=== PATIENT | male | born 1970 | race Caucasian/White ===

== ENCOUNTER 2017-04-09 17:06 | Emergency (ER) | payer OTHER ==
[2017-04-09 17:37] VITALS: BMI 23.1
[2017-04-09 17:45] LABS: URINE APPEARANCE Clear; URINE BILIRUBIN Negative (NEGATIVE); URINE BLOOD Trace-lysed (NEGATIVE); URINE GLUCOSE (UA) 3+ (NEGATIVE); URINE KETONE Negative (NEGATIVE); URINE LEUK ESTERASE Negative (NEGATIVE); URINE NITRITE Negative (NEGATIVE); URINE PROTEIN Negative (NEGATIVE); URINE UROBILINOGEN 0.2 E.U/dl (0.2-1.0)
[2017-04-09 17:46] LABS: URINE COLOR YELLOW
[2017-04-09] MEDS ORDERED: FOLIC ACID INJECTION - 1 MG, THIAMINE HCL 100 MG, MULTIVIT INJECTION ADULT 10 ML in SOD... IVPB ONE (18:16)
--- NOTE | 2017-04-09 18:21 | PDOC ---
History of Present Illness - General Chief Complaint: Psychiatric Stated Complaint: HAVING SUICIDAL IDEAS Time Seen by Provider: 04/09/17 17:11 - History of Present Illness Initial Comments: 04/09/17 18:17 46-year-old male with a past medical history of traumatic brain injury/ICH 2 and half years ago, alcohol abuse, anxiety disorder, bipolar disorder, PTSD, OCD , diabetes with diabetic neuropathy, and severe psoriasis Patient is on multiple psych meds, but stopped them about a week ago He's been drinking heavily for the past 4-5 days He states that he's been drinking a lot because he is having his chronic headaches from his TBI He also became very upset about this and became very depressed off his medications He states that for the past 2 days he's been feeling suicidal, and wants to end it all He states that his plan is to walk in front of a bus, or jump onto train tracks when the train is coming He states that the only medication that he is still taking is his diabetes medication He denies any illicit drug use He denies any other complaints at this time Past History - Past Medical History Allergies/Adverse Reactions: Allergies Allergy/AdvReac Type Severity Reaction Status Date / Time No Known Allergies Allergy Verified 04/09/17 17:10 Home Medications: Ambulatory Orders Sitagliptin Phos/Metformin HCl [Janumet Xr 50-1,000 mg Tablet] 2 each PO DAILY 04/09/17 Divalproex [Depakote -] 1,000 mg PO HS 04/10/17 Venlafaxine HCl [Effexor -] 2 tab PO DAILY 04/10/17 Diabetes: Yes Psychiatric Problems: Yes (SOCIAL ANXIETY, POST TRAUMATIC STRESS OCD ALCOHOL DEPENDENCY) Other medical history: BRAIN INJURY 2 1/2 YEARS AGO CRANIAL BLEED, NEUROPATHY TO LOWER EXTREMITI - Surgical History Neurologic Surgery: Yes (FOR INTRA CRANIAL BLEED) - Psycho/Social/Smoking Cessation Hx Anxiety: Yes Suicidal Ideation: Yes (PLAN TO WALK IN FRONT OF BUS) Smoking History: Current every day smoker Have you smoked in the past 12 months: Yes Number of Cigarettes Smoked Daily: 20 Information on smoking cessation initiated: Yes 'Breaking Loose' booklet given: 04/09/17 Hx Alcohol Use: Yes Drug/Substance Use Hx: No Substance Use Type: Alcohol Review of Systems - Review of Systems Able to Perform ROS?: Yes Comments:: 04/09/17 18:19 12 point review of systems is as per history of present illness and otherwise negative *Physical Exam - Vital Signs Last Vital Signs Temp Pulse Resp BP Pulse Ox 99.2 F 108 H 18 123/87 96 04/09/17 17:09 04/09/17 17:09 04/09/17 17:09 04/09/17 17:09 04/09/17 17:09 - Physical Exam Comments: 04/09/17 18:19 Physical exam Last Vital Signs Temp Pulse Resp BP Pulse Ox 99.2 F 108 H 18 123/87 96 04/09/17 17:09 04/09/17 17:09 04/09/17 17:09 04/09/17 17:09 04/09/17 17:09 GENERAL: The patient is awake, alert, and with AOAOB HEAD: Normal with no signs of trauma. EYES: sclera anicteric, conjunctiva are normal. ENT: Moist mucous membranes. NECK: Normal range of motion, supple LUNGS: Breath sounds equal, clear to auscultation bilaterally. No wheezes, and no crackles. HEART: Tachycardic Regular rate and rhythm, normal S1 and S2 without murmur, rub or gallop. ABDOMEN: Soft, nontender, normoactive bowel sounds. No guarding, no rebound. No masses appreciated. EXTREMITIES: Normal range of motion, no edema. No clubbing or cyanosis. No cords, erythema, or tenderness. NEUROLOGICAL: Cranial nerves II through XII grossly intact. Normal speech, normal gait. PSYCH: Normal mood, normal affect. SKIN: Warm, Dry, severe diffuse psoriasis ED Treatment Course - LABORATORY CBC & Chemistry Diagram: 04/09/17 18:20 04/10/17 07:43 - ADDITIONAL ORDERS Additional order review: Laboratory Results 04/09/17 17:10 Urine Color Yellow Urine Appearance Clear Urine pH 5.0 Ur Specific [place] <= 1.005 Urine Protein Negative Urine Glucose (UA) 3+ H Urine Ketones Negative Urine Blood Trace-lysed Urine Nitrite Negative Urine Bilirubin Negative Urine Urobilinogen 0.2 e.u/dl Ur Leukocyte Esterase Negative Medical Decision Making - Medical Decision Making 04/09/17 18:20 46-year-old male with history as noted above, with active suicidal ideation, and recent heavy drinking, with a strong odor of alcohol on his breath Will start with a banana bag, labwork, drug screen, alcohol level 04/09/17 18:21 Patient absolutely refuses IV I did have an extensive discussion with the patient and he still absolutely refuses IV 04/09/17 19:16 SIGN OUT Case discussed in detail with oncoming Emergency Physician including history, physical exam and ancillary studies. Oncoming Emergency Physician has assumed care for the patient and will complete the evaluation and treatment. Case and all results discussed with Dr. hodge-all labwork and studies pending at time of sign out Patient sitting comfortably with a one-on-one, still refusing IV EKG Normal sinus rhythm 96, normal axis Normal AV and IV conduction time Prolonged QT with a QTC of [address]-T waves *DC/Admit/Observation/Transfer Diagnosis at time of Disposition: Suicidal ideations - Discharge Dispostion Disposition: TRANSFER ACUTE CARE/OTHER HOSP Condition at time of disposition: Stable
[2017-04-09 18:42] LABS: INR 0.86 (0.82-1.09); PROTHROMBIN TIME (PATIENT) 9.7 SEC (10.2-13.0)
[2017-04-09 18:50] LABS: ALBUMIN 4.4 g/dl (3.5-5.0); ALK PHOS 136 U/L (32-92); ANION GAP 16 (8-16); BILIRUBIN,TOTAL 0.2 mg/dl (0.2-1.0); CALCIUM 9.5 mg/dl (8.4-10.2); CO2 21 mmol/L (22-28); CREATININE 1.3 mg/dl (0.6-1.3); MAGNESIUM 2.3 mg/dL (1.8-2.4); SGOT/AST 24 U/L (10-42); SGPT/ALT 27 U/L (10-40)
[2017-04-09 18:54] LABS: MCH 32.9 pg (25.7-33.7); MCHC 34.3 g/dl (32.0-35.9); MEAN PLT VOLUME 8.9 fl (7.5-11.1); PLATELET COUNT 349 K/MM3 (134-434); RDW 12.6 % (11.9-15.9); WHITE BLOOD COUNT 8.2 K/mm3 (4.0-10.8)
[2017-04-09 19:08] LABS: URINE MARIJUANA THC NEGATIVE ng/ml (CUTOFF=50)
[2017-04-09 19:08] LABS: TROPONIN I (DFP) < 0.03 ng/ml (0.03-0.50)
[2017-04-09 19:11] LABS: GLUCOSE,RANDOM 465 mg/dl (74-106)
[2017-04-09 19:13] LABS: CPK(DFH) 88 IU/L (38-174)
--- NOTE | 2017-04-09 21:28 | PDOC ---
[id number] 123/87 96 04/09/17 17:09 04/09/17 17:09 04/09/17 17:09 04/09/17 17:09 04/09/17 17:09 ED Treatment Course - LABORATORY CBC & Chemistry Diagram: 04/09/17 18:20 04/10/17 07:43 - ADDITIONAL ORDERS Additional order review: Laboratory Results 04/09/17 04/09/17 04/09/17 18:20 18:20 18:20 INR Sodium 128 L Potassium 5.2 H Chloride 91 L Carbon Dioxide 21 L Anion Gap 16 BUN 8 Creatinine 1.3 Creat Clearance w eGFR 58.92 Random Glucose 465 H* Calcium 9.5 Magnesium 2.3 Total Bilirubin 0.2 AST 24 ALT 27 Alkaline Phosphatase 136 H Creatine Kinase 88 Troponin I < 0.03 L Total Protein 8.0 Albumin 4.4 Urine Color Urine Appearance Urine pH Ur Specific [place] Urine Protein Urine Glucose (UA) Urine Ketones Urine Blood Urine Nitrite Urine Bilirubin Urine Urobilinogen Ur Leukocyte Esterase Opiates Screen Methadone Screen Barbiturate Screen Phencyclidine Screen Ur Amphetamines Screen MDMA (Ecstasy) Screen Benzodiazepines Screen Cocaine Screen U Marijuana (THC) Screen Alcohol, Quantitative 252.8 H* 04/09/17 04/09/17 04/09/17 18:20 17:10 17:10 INR 0.86 L Sodium Potassium Chloride Carbon Dioxide Anion Gap BUN Creatinine Creat Clearance w eGFR Random Glucose Calcium Magnesium Total Bilirubin AST ALT Alkaline Phosphatase Creatine Kinase Troponin I Total Protein Albumin Urine Color Yellow Urine Appearance Clear Urine pH 5.0 Ur Specific [place] <= 1.005 Urine Protein Negative Urine Glucose (UA) 3+ H Urine Ketones Negative Urine Blood Trace-lysed Urine Nitrite Negative Urine Bilirubin Negative Urine Urobilinogen 0.2 e.u/dl Ur Leukocyte Esterase Negative Opiates Screen Negative Methadone Screen Negative Barbiturate Screen Negative Phencyclidine Screen Negative Ur Amphetamines Screen Negative MDMA (Ecstasy) Screen Negative Benzodiazepines Screen Negative Cocaine Screen Negative U Marijuana (THC) Screen Negative Alcohol, Quantitative 04/09/17 18:20 RBC 4.61 MCV 96.0 MCHC 34.3 RDW 12.6 MPV 8.9 Progress Note - Progress Note Progress Note: Care of this patient received from Dr. Nathan. Patient has refused IV fluids but will drink water. Importance of hydration in light of his hyperglycemia and alcohol intoxication emphasized to the patient. Medical Decision Making - Medical Decision Making 04/10/17 00:22 Patient given 10 units of regular insulin subcutaneously for blood sugar of 465. He continues to drink copious amounts of water Repeat laboratory evaluation shows improvement of hyperglycemia with new value of 330. Also, his alcohol level has decreased to 37.6. Patient continues to be alert, oriented 3. He has having increased tremulousness and has received Librium 50 mg by mouth. Patient continues to express hopelessness and suicidal ideation. He states that he was told that he has degenerative changes in his brain secondary to trauma sustained 2-1/2 years ago. When he was told this 2 weeks ago, he began to drink heavily and became increasingly depressed. He understands that he needs psychiatric care and feels that" he needs to talk to someone " Since patient wants to be close to his children who live in [place], his first choice for inpatient psychiatric admission would be [facility]. His demographic information/synopsis/laboratory work faxed to [facility]. Informed by [facility] that psychiatrist will not be able to evaluate material until the morning. They currently do not have any open beds Patient has stated that [facility] would also be acceptable for inpatient psychiatric care. 04/10/17 01:58 Repeat fingerstick glucose is 226. Patient is resting comfortably without new complaints. Patient is medically cleared for inpatient psychiatric admission. 04/10/17 03:39 Medical synopsis/demographic information/lab/EKG/medical clearance faxed to [facility] (through transfer center). Information was communicated to psychiatrist on-call and reviewed as per transfer center. Have been advised that medical reevaluation and full packet of information, including medical clearance as above will need to be refaxed to the transfer center at approximately 9 AM 04/10/17 07:04 Patient updated regarding his transfer applications and [facility] and [facility]. Patient is still eager for inpatient evaluation at either facility. Patient states that he is feeling generally better but is very thirsty. Has given additional water to drink now. Repeat chemistry profile/ethanol level pending 04/10/17 07:18 Case signed out to Dr Huddleston at end of shift *DC/Admit/Observation/Transfer Diagnosis at time of Disposition: Suicidal ideations - Discharge Dispostion Disposition: TRANSFER ACUTE CARE/OTHER HOSP Condition at time of disposition: Stable
[2017-04-09] MEDS ORDERED: INSULIN REGULAR HUMAN 100 UNITS/ML *VIAL SQ ONE (21:35)
[2017-04-09] MEDS ORDERED: INSULIN REGULAR HUMAN 100 UNITS/ML *VIAL ONE (21:46)
[2017-04-09] MEDS ORDERED: chlordiazePOXIDE HCL 25 MG CAPSULE PO ONE (23:04)
[2017-04-09] MEDS ORDERED: chlordiazePOXIDE HCL 25 MG CAPSULE ONE (23:07)
[2017-04-09 23:23] LABS: ALBUMIN 4.4 g/dl (3.5-5.0); ALK PHOS 134 U/L (32-92); ANION GAP 15 (8-16); BILIRUBIN,TOTAL 0.7 mg/dl (0.2-1.0); CALCIUM 9.4 mg/dl (8.4-10.2); CO2 22 mmol/L (22-28); COCKROFT - GAULT 97.47; CREATININE 1.1 mg/dl (0.6-1.3); SGOT/AST 22 U/L (10-42); SGPT/ALT 28 U/L (10-40); TOT PROT 7.9 g/dl (6.4-8.3)
[2017-04-09 23:27] LABS: GLUCOSE,RANDOM 330 mg/dl (74-106)
--- NOTE | 2017-04-10 07:35 | PDOC ---
*Physical Exam - Vital Signs Last Vital Signs Temp Pulse Resp BP Pulse Ox 99.2 F 90 14 107/61 93 L 04/09/17 17:09 04/10/17 01:38 04/10/17 01:38 04/10/17 01:38 04/10/17 01:38 ED Treatment Course - LABORATORY CBC & Chemistry Diagram: 04/09/17 18:20 04/10/17 07:43 - ADDITIONAL ORDERS Additional order review: Laboratory Results 04/10/17 04/09/17 04/09/17 02:22 23:00 23:00 Sodium 131 L Potassium 4.5 Chloride 94 L Carbon Dioxide 22 Anion Gap 15 BUN 8 Creatinine 1.1 Creat Clearance w eGFR > 60 POC Glucometer 226 Random Glucose 330 H* D Calcium 9.4 Total Bilirubin 0.7 D AST 22 ALT 28 Alkaline Phosphatase 134 H Total Protein 7.9 Albumin 4.4 Alcohol, Quantitative 37.6 H* 04/10/17 04/09/17 02:22 18:20 RBC 4.61 MCV 96.0 MCHC 34.3 RDW 12.6 MPV 8.9 POC Glucometer 226 - Medications Given in the ED: ED Medications Discontinued Medications Generic Name Dose Route Start Last Admin Trade Name Freq PRN Reason Stop Dose Admin Chlordiazepoxide HCl 50 mg 04/09/17 23:04 04/09/17 23:05 Librium - PO 04/09/17 23:05 50 mg ONCE ONE Administration Folic Acid 1 mg/ Thiamine HCl 1,000 mls @ 125 mls/hr 04/09/17 18:16 04/09/17 18 :21 100 mg/ Multivitamins/Minerals IVPB 04/10/17 02:15 Not Given 10 ml/ Sodium Chloride ONCE ONE Insulin Human Regular 10 units 04/09/17 21:35 04/09/17 21:43 Novolin R Vial *For Ivpush Or Iv Drip Only* SQ 04/09/17 21:36 10 units ONCE ONE Administration Medical Decision Making - Medical Decision Making 04/10/17 07:34 I received this patient on sign out He is awaiting transfer to [facility] or [facility] Will call Dr gregory as I am being told he must see this patient 04/10/17 08:06 Received call from smita at [facility] We are awaiting attending to finish rounds 04/10/17 08:[address] Gregory He will see this patient at approximately 1pm 04/10/17 09:20 Call placed to [facility] Still awaiting for attending response 04/10/17 11:[address] Peoples will transfer to [facility] Will transfer via BLS Pt is not tachycardiac or tremulous *DC/Admit/Observation/Transfer Diagnosis at time of Disposition: Suicidal ideations - Discharge Dispostion Disposition: TRANSFER ACUTE CARE/OTHER HOSP Condition at time of disposition: Stable Admit: No - Transfer to Acute Care Facility Receiving Facility: [facility]. Accepting Physician:: Dr. Peoples
[2017-04-10 08:10] LABS: ALBUMIN 3.8 g/dl (3.5-5.0); ALK PHOS 118 U/L (32-92); ANION GAP 10 (8-16); BILIRUBIN,TOTAL 0.9 mg/dl (0.2-1.0); CALCIUM 8.9 mg/dl (8.4-10.2); CO2 26 mmol/L (22-28); GLUCOSE,RANDOM 267 mg/dl (74-106); SGOT/AST 21 U/L (10-42); SGPT/ALT 23 U/L (10-40); TOT PROT 6.8 g/dl (6.4-8.3)
[2017-04-10] MEDS ORDERED: metFORMIN HCL 500 MG TABLET (FP) PO ONE (11:09)
[2017-04-10] MEDS ORDERED: metFORMIN HCL 500 MG TABLET (FP) ONE (11:23)
[2017-04-10] MEDS ORDERED: sitaGLIPtin PHOSPHATE 50 MG TABLET PO ONE (11:26)
[2017-04-10 11:43] VITALS: BP 120/72; PULSE 86; TEMP 98
--- NOTE | 2017-04-10 14:23 | EKG ---
Test Reason : Blood Pressure : / mmHG Vent. Rate : 096 BPM Atrial Rate : 096 BPM P-R Int : 126 ms QRS Dur : 098 ms QT Int : 352 ms P-R-T Axes : 049 053 061 degrees QTc Int : 445 ms SINUS RHYTHM NONSPECIFIC T WAVE ABNORMALITY ABNORMAL ECG NO PREVIOUS ECGS AVAILABLE Confirmed by JACE LISA MD ([id number]) on 04/10/2017 2:23:47 PM Referred By: MD STONE Confirmed By:JACE LISA MD
== END 2017-04-10 13:33 | disposition short-term general hospital (02) ==
LOC: FER 17:06
PROC: 3E013VG Introduction of Insulin into Subcutaneous Tissue, Percutaneous Approach (ICD-10-PCS; principal; 2017-04-09)
DX: R45.851 Suicidal ideations (principal); E11.9 Type 2 diabetes mellitus without complications; Z87.820 Personal history of traumatic brain injury; F43.10 Post-traumatic stress disorder, unspecified; F42.9 Obsessive-compulsive disorder, unspecified; F10.20 Alcohol dependence, uncomplicated; F17.210 Nicotine dependence, cigarettes, uncomplicated
CPT/HCPCS: 36415; 80053; 80307; 81003; 82550; 83735; 84484; 85027; 85610; 93005; 99285-25